=== PATIENT | male | born 1950 | race Caucasian/White ===

== ENCOUNTER 2023-04-30 14:10 | Outpatient (AMB) | payer MEDICARE, SELFPAY ==
--- NOTE | 2023-04-30 14:40 | A.OFFVIS_ITS ---
Intake Vital Signs 04/30/23 15:07 Height 5 ft 9 in Weight 151 lb 2 oz BMI 22.3 BP 98/68 Blood Pressure Location Lt brachial Position Sitting Respiration 15 Pulse 58 Pulse Source Pulse Oximeter Pulse Oximetry (%) 98 Oxygen Delivery Method Room Air Intake Visit Reasons: E-MOLD FILLER /Left sided CVA-/confirmed Intake Note: Pt is here for new pt evaluation for left sided CVA. Pt reports left sided weakness. Pt [place] [facility] [place]. Rehab followed for 2 months. Pt is here at the suggestion of his physical therapist and PCP due to rigidity and his muscles being too polina . He has difficulty unclenching his fist. PCP thought he may benefit from Botox. Allergies No Known Allergies Allergy (Verified 04/30/23 15:02) Medication List - Last Reconciled 04/30/23 by Astrid Baltazar MD acetaminophen 500 mg PO QID PRN aspirin 81 mg PO DAILY atorvastatin 80 mg PO DAILY gabapentin 600 mg PO BEDTIME HPI HPI Comments History of Present Illness Details 72y/o male comes for neurological evalua tion . He had a CVA on Jul 08 2021. He had a fall ,right facial droop , right sided weakness and left gaze preference and found to have acute ischemia in the left motor strip, left parietal and occipital lobes with associated petechial hemorrhages in the setting left ICA thrombus. He was too late for TPA. Echo showed EF 55-65% right ICA 1-49 % Left ICA 50-69% He also had COVID pneumonia. He was in hospital for few weeks, [facility] for 3 months and moved to [place] to stay with family. He had repeat testing in [place]. Since then he is on aspirin 81mg qd and atorvostatin 80mg qd. He has loud snoring and has some fatigue . He is independent in most ADLs. He wants to be evaluated for botox . He reports pain in right UE. [facility] Medical History (Updated 04/30/23 @ 15:42 by Astrid Baltazar MD) Hypersomnia Snoring Left carotid artery stenosis Right-sided extracranial carotid artery stenosis Hyperlipidemia Right hemiparesis CVA (cerebral vascular accident) Surgical History (Updated 04/30/23 @ 15:04 by Rosalie Peoples CMA) History of surgical removal of skin lesion Family History (Updated 04/30/23 @ 15:04 by Rosalie Peoples CMA) Mother No problems noted. Social History (Updated 04/30/23 @ 15:06 by Rosalie Peoples CMA) Household Members: Spouse Housing: House Are you a primary rn medicare to a significant other at home: Yes Alcohol intake: current Patient Tobacco Use Status: Former Tobacco user Years Smoked: 50 - Quit in 2020 Use of substances other than those prescribed or required for medical reasons: No Review of Systems Const Reports weakness Neuro Reports focal weakness and Reports weakness Physical Exam Vital Signs: Last Vital Signs Pulse 58 04/30/23 15:07 Resp 15 04/30/23 15:07 BP 98/68 04/30/23 15:07 Pulse Ox 98 04/30/23 15:07 Oxygen Delivery Method Room Air 04/30/23 15:07 BMI result Body Mass Index 22.3 Const General: cooperative and comfortable Nutritional Appearance: average body habitus Orientation/consciousness: patient oriented x3 Neuro Other: right UMN facial paresis Cannot shrug right shoulder Tightness in right trapezius and levator Power right UE 0-1/5 , spasticity Right Lower 3/5 - increased tone Dysarthria Mallampatti grade 4 gait- can walk without cane , small steps , off balance General: patient oriented x3 Cranial nerves: Yes Bilaterally intact EOM present and Yes Nystagmus not present Cognition (Neuro): normal cognition Gait exam (Neuro): Spastic hemiparesis gait present Deep tendon reflexes (DTR's): Right triceps reflex intensity grade: 2+, Left triceps reflex intensity grade: 2+, Rt Biceps (C5, C6): 2+, Left biceps reflex intensity grade: 2+, Right brachioradialis reflex intensity grade: 2+, Left brachioradialis reflex intensity grade: 2+, Right patellar reflex intensity grade: 3+ and Left patellar reflex intensity grade: 2+ Coordination: [id number] test normal (normal on left, unable to do on right) Assessment & Plan Assessment & Plan (1) Right hemiparesis: Code(s): G81.91 - Hemiplegia, unspecified affecting right dominant side (2) Left carotid artery stenosis: Code(s): I65.22 - Occlusion and stenosis of left carotid artery (3) Snoring: Code(s): R06.83 - Snoring Plan Continue aspirin 81mg qd Atorvastatin 80mg qd Refer to Vascular for carotid stenosis. Botox for upper limb spasticity Home sleep test to r/o sleep apnea Orders: Orders RT home sleep study Today G47.10 - Hypersomnia, unspecified, I63.9 - Cerebral infarction, unspecified, R06.83 - Snoring Referrals Vascular Surgery Referral I65.22 - Occlusion and stenosis of left carotid artery Coding Level of Care Code New Pt Level 4 (42120) Diagnoses Right hemiparesis G81.91 Left carotid artery stenosis I65.22 Snoring R06.83
[2023-04-30 15:07] VITALS: BP 98/68; PULSE 58; RESP 15; O2SAT 98; BMI 22.3
== END 2023-04-30 15:47 | disposition home or self-care (01) ==
PROVIDERS: Visit Provider Psychiatry & Neurology Neurology
DX: G81.91 Hemiplegia, unspecified affecting right dominant side (principal); I65.22 Occlusion and stenosis of left carotid artery; R06.83 Snoring
CPT/HCPCS: 99204

== ENCOUNTER → 2023-04-30 14:10 | Outpatient (BNVA) | payer MEDICARE, SELFPAY | PROVIDERS: Visit Provider Psychiatry & Neurology Neurology ==

== ENCOUNTER 2023-05-22 09:04 | Outpatient (AMB) | payer MEDICARE, SELFPAY ==
--- NOTE | 2023-05-22 09:07 | A.OFFVIS_ITS ---
Intake Vital Signs 05/22/23 09:08 Height 5 ft 9 in Weight 153 lb 6 oz BMI 22.6 BP 138/76 Blood Pressure Location Lt brachial Position Sitting Respiration 16 Pulse 52 Pulse Source Pulse Oximeter Pulse Oximetry (%) 97 Oxygen Delivery Method Room Air Intake Visit Reasons: botox Intake Note: Pt presents to the office for Botox injections. Mechanic Assistant Required: No Allergies No Known Allergies Allergy (Verified 05/22/23 09:08) Medication List - Last Reconciled 05/22/23 by Astrid Baltazar MD acetaminophen 500 mg PO QID PRN aspirin 81 mg PO DAILY atorvastatin 80 mg PO DAILY gabapentin 600 mg PO BEDTIME onabotulinumtoxinA (Botox) 100 units to be injecte dto UE muscle for spasticity; HPI HPI Comments History of Present Illness Details 72y/o male comes for treatment of his Ri ght Ue spasticty with botox Side effects including increased weakness, pain, allergic reaction, bleeding, infection were discussed in detail and an informed consent was obtained. Botulinum toxin type A 100 units Lot no C [id number] Exp 09/2025 was diluted with 2 cc of normal saline at a concentration of 25 units in 0.5 cc. Side effects were discussed and an informed consent was obtained. Muscles injected Right Biceps- 25 units Right Brachialis 25 units Right flexor carpii ulnaris 25 units Right flexor carpii radialis 25 units Total used 100 units [facility] Medical History (Updated 05/22/23 @ 09:33 by Astrid Baltazar MD) Spasticity due to old stroke Hypersomnia Snoring Left carotid artery stenosis Right-sided extracranial carotid artery stenosis Hyperlipidemia Right hemiparesis CVA (cerebral vascular accident) Surgical History History of surgical removal of skin lesion Family History Mother No problems noted. Social History Household Members: Spouse Housing: House Are you a primary healthcare network consultant to a significant other at home: Yes Alcohol intake: current Patient Tobacco Use Status: Former Tobacco user Years Smoked: 50 - Quit in 2020 Physical Exam Vital Signs: Last Vital Signs Pulse 52 05/22/23 09:08 Resp 16 05/22/23 09:08 BP 138/76 11/09/23 09:08 Pulse Ox 97 05/22/23 09:08 Oxygen Delivery Method Room Air 05/22/23 09:08 BMI result Body Mass Index 22.6 Const General: cooperative and comfortable Nutritional Appearance: average body habitus Orientation/consciousness: patient oriented x3 Neuro Other: right UMN facial paresis Cannot shrug right shoulder Tightness in right trapezius and levator Power right UE 0-1/5 , spasticity Right Lower 3/5 - increased tone Dysarthria Mallampatti grade 4 gait- can walk without cane , small steps , off balance General: patient oriented x3 Cranial nerves: Yes Bilaterally intact EOM present and Yes Nystagmus not present Coordination: hhtfen-fc-kxoc test normal (normal on left, unable to do on right) Office Procedures Botulinum toxin Injection 67217 - Extr 1-4 Procedure code (CPT) selection complete Office Meds onabotulinumtoxinA 100 unit solution for injection Performing Provider: Astrid Baltazar MD Performing Location: [facility] [place] [facility] Administered by: Astrid Baltazar MD on 05/22/23 09:35 Dose Route Admin Location Dispensed Lot Number Expiration Date [facility] Care Services Manager 100 unit IM 100 units [id number] 09/11/25 3618-0833-63 ALLERGAN/BOTOX Comments: see hpi Assessment & Plan Assessment & Plan (1) Spasticity due to old stroke: Code(s): I69.398 - Other sequelae of cerebral infarction; R25.2 - Cramp and spasm Plan Patient tolerated the procedure well He will call with any side effects. Orders: Orders AMB Botulinum toxin Injection Today I69.398 - Other sequelae of cerebral infarction, R25.2 - Cramp and spasm Coding Level of Care Code Est Pt Level 1 (99735) Diagnoses Spasticity due to old stroke I69.398; R25.2 CPT Codes Botox Injection - Botox 5: 50734 - Extr 1-4 ([id number])
[2023-05-22 09:08] VITALS: BP 138/76; PULSE 52; RESP 16; O2SAT 97; BMI 22.6
== END 2023-05-22 09:49 | disposition home or self-care (01) ==
PROVIDERS: PCP Hospitalist; Visit Provider Psychiatry & Neurology Neurology
DX: I69.331 Monoplegia of upper limb following cerebral infarction affecting right dominant side (principal); M62.838 Other muscle spasm
CPT/HCPCS: 64642

== ENCOUNTER → 2023-05-22 09:04 | Outpatient (BNVA) | payer MEDICARE, SELFPAY | PROVIDERS: PCP Hospitalist; Visit Provider Psychiatry & Neurology Neurology | DX: I69.398 Other sequelae of cerebral infarction (principal); R25.2 Cramp and spasm | CPT/HCPCS: 64642; 99211; J0585 ==

== ENCOUNTER → 2023-06-10 13:49 | Outpatient (REF) | payer MEDICARE, SELFPAY | LOC: HO.SL 13:49 | PROVIDERS: PCP Hospitalist; Visit Provider Psychiatry & Neurology Neurology | DX: G47.33 Obstructive sleep apnea (adult) (pediatric) (principal); G47.10 Hypersomnia, unspecified; R06.83 Snoring | CPT/HCPCS: 95806 ==

== ENCOUNTER → 2023-06-10 14:11 | Outpatient (BNV) | payer MEDICARE, SELFPAY | PROVIDERS: PCP Hospitalist; Visit Provider Psychiatry & Neurology Neurology | DX: G47.33 Obstructive sleep apnea (adult) (pediatric) (principal) | CPT/HCPCS: 95806 ==

== ENCOUNTER 2023-06-24 13:41 | Outpatient (AMB) | payer MEDICARE, SELFPAY ==
--- NOTE | 2023-06-24 13:48 | MHC.OFFVIS ---
Intake Intake Visit Reasons: carotid stenosis Intake Note: Rhuem referral for carotid stenosis, had stroke 07/08/2021, went to [facility] and was there about a mpnth, then went to [facility] for 6 weeks. Then in September 2021 had follow up testing in [place], was staying with brother, the doctor in [place] did testing that showed much lower percentage stenosis. So pt is very confused about current carotid issue. Accompanied by: Spouse Allergies No Known Allergies Allergy (Verified 06/24/23 14:01) HPI carotid stenosis HPI Details Very complex 72-year-old gentleman presents for evaluation regarding carotid disease. It is actually a confusing story that dates back to 07/08/2021. At that time he had COVID and subsequently passed out in the bathroom. He was subsequently admitted to [facility] and worked up. At that time CTA of the neck demonstrated 75% carotid stenosis and he had a stroke. He has a weakened right lower extremity in a nonfunctioning right upper extremity. Her he then went down to [place] and had a significant workup down there. According to the patient and unfortunately I do not have written documentation the workup was essentially negative down there. Most recently was seen by our neurology team and was referred to us for evaluation and workup. He has had no other interval changes. He is being maintained on aspirin and high-dose statin. He now presents for vascular evaluation. [facility] Medical History Spasticity due to old stroke Hypersomnia Snoring Left carotid artery stenosis Right-sided extracranial carotid artery stenosis Hyperlipidemia Right hemiparesis CVA (cerebral vascular accident) Surgical History History of surgical removal of skin lesion Family History Mother No problems noted. Social History Household Members: Spouse Housing: House Are you a primary care management associate to a significant other at home: Yes Alcohol intake: current Patient Tobacco Use Status: Former Tobacco user Years Smoked: 50 - Quit in 2020 Review of Systems Const All systems reviewed & are unremarkable except as noted in HPI and below Reports no additional complaints ENT Reports Normal hearing present Card Denies chest pain, Denies chest pain at rest, Denies chest pain with activity and Denies pedal edema Resp Denies cough GI Denies abdominal pain Musc Denies abnormal gait, Denies muscle cramps and Denies radiating pain into limb Skin/Breast Denies skin ulcer and Denies wounds Neuro Reports Normal hearing present and Denies abnormal gait Psych Reports no additional complaints Physical Exam Const General: cooperative, healthy appearing and comfortable Orientation/consciousness: oriented to person, oriented to place and oriented to time HEENT Head: Yes normal to inspection Neck Neck: Yes normal visual inspection Carotids: no bruits Chest Chest palpation & inspection: normal inspection of the chest Resp Effort & Inspection: normal respiratory effort and able to speak in complete sentences Auscultation: clear to auscultation bilaterally, no crackles, no rales, no rhonchi and no wheezes Cardio Rate: regular rate Rhythm: regular rhythm Heart sounds: S1 normal heart sound present and S2 normal heart sound present Bruits: no carotid bruits Peripheral pulses: Peripheral pulses 2+ throughout GI Inspection: Yes normal to inspection Skin Wounds: no wounds Hair: normal Neuro Other: Nonfunctioning right upper extremity, right lower extremity 3/5 strength General: oriented to person, oriented to place and oriented to time Cranial nerves: Yes CN's II-XII intact bilaterally and Yes Normal hearing present Cognition (Neuro): normal cognition Motor exam (neuro): 5/5 motor strength present throughout Extrem Other: venous exam: No significant superficial varicosities or spider telangiectasias, minimal edema General: No clubbing, No cyanosis and No edema Psych Appearance: grossly normal Mental Status: mental status grossly normal Speech and movement: Normal speech and movement present Results Reviewed Results Reviewed: Written report from CT scan at [facility] performed 07/24/2021 demonstrates left-sided stenosis of 75% Assessment & Plan Assessment & Plan (1) Left carotid artery stenosis: Code(s): I65.22 - Occlusion and stenosis of left carotid artery Plan: In short patient has high-grade carotid stenosis. It is unclear what the true degree of stenosis and why his workup at [place] was essentially negative. I have taken the liberty of ordering a CT angiogram to better elucidate the degree of stenosis. The entire pathophysiology of disease and possible further care including surgery was discussed with the patient and the patient's at bedside. We will try to expedite the CT scan. They have requested that the CT scan be performed in [place] and we will try to coordinate that for them. Thank you for allowing us to assist in his care. If there are any questions or concerns please do not hesitate to contact us. Orders: Orders Blood Urea Nitrogen Today I65.22 - Occlusion and stenosis of left carotid artery Creatinine Today I65.22 - Occlusion and stenosis of left carotid artery Coding Level of Care Code New Pt Level 4 (39464) Diagnoses Left carotid artery stenosis I65.22
== END 2023-06-24 14:18 | disposition home or self-care (01) ==
PROVIDERS: PCP Hospitalist; Visit Provider Surgery Vascular Surgery
DX: I65.22 Occlusion and stenosis of left carotid artery (principal)
CPT/HCPCS: 99204

== ENCOUNTER → 2023-06-24 13:41 | Outpatient (BNVA) | payer MEDICARE, SELFPAY | PROVIDERS: PCP Hospitalist; Visit Provider Surgery Vascular Surgery | DX: I65.22 Occlusion and stenosis of left carotid artery (principal) | CPT/HCPCS: 99202 ==

== ENCOUNTER 2023-07-17 13:30 | Outpatient (AMB) | payer MEDICARE, SELFPAY ==
--- NOTE | 2023-07-17 13:35 | MHC.OFFVIS ---
Intake Vital Signs 07/17/23 13:37 07/17/23 13:45 Height 5 ft 9 in Weight 155 lb BMI 22.9 BP 128/68 128/72 Blood Pressure Location Lt brachial Rt brachial Position Sitting Sitting Pulse 50 Pulse Source Pulse Oximeter Pulse Oximetry (%) 98 Oxygen Delivery Method Room Air Intake Visit Reasons: CTA neck at [facility] Intake Note: Pt presents to the office today for a CTA neck. Pt states he is feeling okay. Pt states he is always tired but has no other symptoms at this time. Allergies No Known Allergies Allergy (Verified 07/17/23 13:40) HPI CTA neck at rayus HPI Details Very pleasant 72-year-old gentleman presents for follow-up regarding carotid stenosis. Complex story that began after a syncopal episode after COVID. Was worked up at [facility]. At that time CTA demonstrated 75% stenosis and he had a stroke. Has weakening of the right upper and lower extremity. He underwent a workup in [place] and apparently the workup down there was negative. They said no intervention was indicated. It was unclear what the true degree of stenosis was. We have obtained a CT angiogram. He now presents for follow-up. He has had no other interval events. [facility] Medical History Spasticity due to old stroke Hypersomnia Snoring Left carotid artery stenosis Right-sided extracranial carotid artery stenosis Hyperlipidemia Right hemiparesis CVA (cerebral vascular accident) Surgical History History of surgical removal of skin lesion Family History Mother No problems noted. Social History (Updated 07/17/23 @ 13:42 by Marli Del Toro MA) Household Members: Spouse Housing: House Are you a primary auto care center manager to a significant other at home: Yes Alcohol intake: current Alcohol intake frequency: a few times a week Alcohol type: beer and wine Patient Tobacco Use Status: Former Tobacco user Years Smoked: 50 - Quit in 2020 Physical Exam Vital Signs: Last Vital Signs Pulse 50 07/17/23 13:37 BP 128/72 07/17/23 13:45 Pulse Ox 98 07/17/23 13:37 Oxygen Delivery Method Room Air 07/17/23 13:37 BMI result Body Mass Index 22.9 Results Reviewed Results Reviewed: CT angiogram performed at [facility] [place] dated 07/11/2023 demonstrates left-sided stenosis of only 40% Assessment & Plan Assessment & Plan (1) Left carotid artery stenosis: Code(s): I65.22 - Occlusion and stenosis of left carotid artery Plan: In short patient has stable carotid disease. I did have an opportunity to closely review the imaging and it does appear that it is 40%. This would be in agreement with the findings in [place]. It appears that the [facility] study may be a misread. We have reviewed signs and symptoms of a stroke. We also discussed risk factor modification inclusive a healthy diet low in cholesterol. The patient will follow up with us with surveillance ultrasound of the carotids 6 months. Should there be any changes or signs or symptoms of a stroke we will be happy to see them back sooner. Thank you for allowing us to participate in this patient's care. If there are any questions or concerns please do not hesitate to contact us. Orders: Orders US carotid duplex BI 6 Months I65.22 - Occlusion and stenosis of left carotid artery Coding Level of Care Code Est Pt Level 4 (60370) Diagnoses Left carotid artery stenosis I65.22
[2023-07-17 13:37] VITALS: BP 128/68; PULSE 50; O2SAT 98; BMI 22.9
[2023-07-17 13:45] VITALS: BP 128/72
== END 2023-07-17 14:08 | disposition home or self-care (01) ==
PROVIDERS: PCP Hospitalist; Visit Provider Surgery Vascular Surgery
DX: I65.22 Occlusion and stenosis of left carotid artery (principal)
CPT/HCPCS: 99213

== ENCOUNTER → 2023-07-17 13:30 | Outpatient (BNVA) | payer MEDICARE, SELFPAY | PROVIDERS: PCP Hospitalist; Visit Provider Surgery Vascular Surgery | DX: I65.22 Occlusion and stenosis of left carotid artery (principal) | CPT/HCPCS: 99212 ==

== ENCOUNTER 2023-09-15 12:53 | Outpatient (AMB) | payer MEDICARE, SELFPAY ==
--- NOTE | 2023-09-15 13:03 | A.OFFVIS_ITS ---
Intake Vital Signs 09/15/23 13:04 Height 5 ft 9 in Weight 155 lb BMI 22.9 BP 128/76 Blood Pressure Location Lt brachial Position Sitting Respiration 17 Pulse 52 Pulse Source Pulse Oximeter Pulse Oximetry (%) 97 Oxygen Delivery Method Room Air Intake Visit Reasons: Botox (B&B) lvm Intake Note: Pt presents to the office for Botox injections. Sample Tester Grinder Required: No Allergies No Known Allergies Allergy (Verified 09/15/23 13:04) Medication List - Last Reconciled 09/15/23 by Astrid Baltazar MD acetaminophen 500 mg PO QID PRN aspirin 81 mg PO DAILY atorvastatin 80 mg PO DAILY gabapentin 600 mg PO BEDTIME onabotulinumtoxinA (Botox) 100 units to be injecte dto UE muscle for spasticity; HPI HPI Comments History of Present Illness Details 73y/o male comes for treatment of his Ri ght Ue spasticty with botox Side effects including increased weakness, pain, allergic reaction, bleeding, infection were discussed in detail and an informed consent was obtained. Botulinum toxin type A 200 units Lot no C [id number] Exp 12/2025 was diluted with 2 cc of normal saline at a concentration of 25 units in 0.5 cc. Side effects were discussed and an informed consent was obtained. Muscles injected Right Biceps- 50units Right Brachioradialis 25 units Right flexor carpii ulnaris 50 units Right flexor carpii radialis 25 units right digitorum profundus 50 units Total used 200 units [facility] Medical History Spasticity due to old stroke Hypersomnia Snoring Left carotid artery stenosis Right-sided extracranial carotid artery stenosis Hyperlipidemia Right hemiparesis CVA (cerebral vascular accident) Surgical History History of surgical removal of skin lesion Family History Mother No problems noted. Social History Household Members: Spouse Housing: House Are you a primary healthcare project manager to a significant other at home: Yes Alcohol intake: current Alcohol intake frequency: a few times a week Alcohol type: beer and wine Patient Tobacco Use Status: Former Tobacco user Years Smoked: 50 - Quit in 2020 Physical Exam Vital Signs: Last Vital Signs Pulse 52 09/15/23 13:04 Resp 17 09/15/23 13:04 BP 128/76 09/15/23 13:04 Pulse Ox 97 09/15/23 13:04 Oxygen Delivery Method Room Air 09/15/23 13:04 BMI result Body Mass Index 22.9 Const General: cooperative and comfortable Nutritional Appearance: average body habitus Orientation/consciousness: patient oriented x3 Neuro Other: right UMN facial paresis Cannot shrug right shoulder Tightness in right trapezius and levator Power right UE 0-1/5 , spasticity Right Lower 3/5 - increased tone Dysarthria Mallampatti grade 4 gait- can walk without cane , small steps , off balance General: patient oriented x3 Cranial nerves: Yes Bilaterally intact EOM present and Yes Nystagmus not present Coordination: ldevmb-fg-bcsj test normal (normal on left, unable to do on right) Office Procedures Botulinum toxin Injection 11676 - Extr 1-4 Procedure code (CPT) selection complete Office Meds onabotulinumtoxinA 200 unit solution for injection Performing Provider: Astrid Baltazar MD Performing Location: [facility] [place] [facility] Administered by: Astrid Baltazar MD on 09/15/23 13:58 Dose Route Admin Location Dispensed Lot Number Expiration Date [facility] Criminal Defense Lawyer 200 unit IM 200 units [id number] 12/12/25 8778-0772-96 ALLERGAN/BOTOX Comments: see hpi Assessment & Plan Assessment & Plan (1) Spasticity due to old stroke: Code(s): I69.398 - Other sequelae of cerebral infarction; R25.2 - Cramp and spasm Plan Patient tolerated the procedure well He will call with any side effects. will refer to for opinion Orders: Orders AMB Botulinum toxin Injection Today I69.398 - Other sequelae of cerebral infarction, R25.2 - Cramp and spasm Referrals Physiatry Referral I69.398 - Other sequelae of cerebral infarction, R25.2 - Cramp and spasm Coding Level of Care Code Est Pt Level 1 (17268) Diagnoses Spasticity due to old stroke I69.398; R25.2 CPT Codes Botox Injection - Botox 5: 18930 - Extr 1-4 ([id number])
[2023-09-15 13:04] VITALS: BP 128/76; PULSE 52; RESP 17; O2SAT 97; BMI 22.9
== END 2023-09-15 13:57 | disposition home or self-care (01) ==
PROVIDERS: PCP Hospitalist; Visit Provider Psychiatry & Neurology Neurology
DX: I69.361 Other paralytic syndrome following cerebral infarction affecting right dominant side (principal)
CPT/HCPCS: 64642

== ENCOUNTER → 2023-09-15 12:53 | Outpatient (BNVA) | payer MEDICARE, SELFPAY | PROVIDERS: PCP Hospitalist; Visit Provider Psychiatry & Neurology Neurology | DX: I69.398 Other sequelae of cerebral infarction (principal); R25.2 Cramp and spasm | CPT/HCPCS: 64642; 99211; J0585 ==

== ENCOUNTER 2023-12-31 12:45 | Outpatient (AMB) | payer MEDICARE, SELFPAY ==
--- NOTE | 2023-12-31 12:47 | A.OFFVIS_ITS ---
Vital Signs 12/31/23 12:57 Height 5 ft 9 in Weight 156 lb 2 oz BMI 23.1 BP 120/74 Blood Pressure Location Lt brachial Position Sitting Pulse 58 Pulse Source Pulse Oximeter Pulse Oximetry (%) 95 Oxygen Delivery Method Room Air Intake Visit Reasons: Botox (B&B) - LVM w/add Intake Note: Patient presents for Botox. Allergies No Known Allergies Allergy (Verified 12/31/23 12:56) HPI Comments Details: 73y/o male comes for treatment of his Right Ue spasticty with botox Side effects including increased weakness, pain, allergic reaction, bleeding, infection were discussed in detail and an informed consent was obtained. Botulinum toxin type A 200 units Lot no C [id number] Exp 01/2026 was diluted with 2 cc of normal saline at a concentration of 25 units in 0.5 cc. Side effects were discussed and an informed consent was obtained. Muscles injected Right Biceps- 50units Right Brachioradialis 25 units Right flexor carpii ulnaris 50 units Right flexor carpii radialis 25 units right digitorum profundus 50 units Total used 200 units [facility] Medical History Spasticity due to old stroke Hypersomnia Snoring Left carotid artery stenosis Right-sided extracranial carotid artery stenosis Hyperlipidemia Right hemiparesis CVA (cerebral vascular accident) Surgical History History of surgical removal of skin lesion Family History Mother No problems noted. Social History Household Members: Spouse Housing: House Are you a primary patient care representative to a significant other at home: Yes Alcohol intake: current Alcohol intake frequency: a few times a week Alcohol type: beer and wine Patient Tobacco Use Status: Former Tobacco user Years Smoked: 50 - Quit in 2020 Physical Exam Vital Signs: Last Vital Signs Pulse 58 12/31/23 12:57 BP 120/74 12/31/23 12:57 Pulse Ox 95 12/31/23 12:57 Oxygen Delivery Method Room Air 12/31/23 12:57 BMI result Body Mass Index 23.1 Const General: cooperative and comfortable Nutritional Appearance: average body habitus Orientation/consciousness: patient oriented x3 Neuro Other: right UMN facial paresis Cannot shrug right shoulder Tightness in right trapezius and levator Power right UE 0-1/5 , spasticity Right Lower 3/5 - increased tone Dysarthria Mallampatti grade 4 gait- can walk without cane , small steps , off balance General: patient oriented x3 Cranial nerves: Yes Bilaterally intact EOM present and Yes Nystagmus not present Coordination: [id number] test normal (normal on left, unable to do on right) Office Procedures Botulinum toxin Injection 38713 - Extr 1-4 Procedure code (CPT) selection complete Office Meds onabotulinumtoxinA 200 unit solution for injection Performing Provider: Astrid Baltazar MD [place] [facility] Administered by: Astrid aBltazar MD on 12/31/23 13:50 Dose Route Admin Location Dispensed Lot Number Expiration Date NDC Resident Associate 200 unit IM 200 units [id number] 01/11/26 6712-1735-26 [employer]ERGAN/BOTOX Comments: see HPI Assessment & Plan Assessment & Plan (1) Spasticity due to old stroke: Code(s): I69.398 - Other sequelae of cerebral infarction; R25.2 - Cramp and spasm Category: Medical Plan Patient tolerated the procedure well He will call with any side effects. Orders: Orders AMB Botulinum toxin Injection Today I69.398 - Other sequelae of cerebral infarction, R25.2 - Cramp and spasm Referrals Physiatry Referral I69.398 - Other sequelae of cerebral infarction, R25.2 - Cramp and spasm Medications: New onabotulinumtoxinA 200 units IM ONCE 1 ea 0RF spasticity I69.398 - Other sequelae of cerebral infarction, R25.2 - Cramp and spasm Coding Level of Care Code Est Pt Level 1 (05951) Diagnoses Spasticity due to old stroke I69.398; R25.2 CPT Codes Botox Injection - Botox 5: 42693 - Extr 1-4 ([id number])
[2023-12-31 12:57] VITALS: BP 120/74; PULSE 58; O2SAT 95; BMI 23.1
== END 2023-12-31 13:27 | disposition home or self-care (01) ==
PROVIDERS: PCP Hospitalist; Visit Provider Psychiatry & Neurology Neurology
DX: I69.351 Hemiplegia and hemiparesis following cerebral infarction affecting right dominant side (principal)
CPT/HCPCS: 64644

== ENCOUNTER → 2023-12-31 12:45 | Outpatient (BNVA) | payer MEDICARE, SELFPAY | PROVIDERS: PCP Hospitalist; Visit Provider Psychiatry & Neurology Neurology | DX: I69.398 Other sequelae of cerebral infarction (principal); R25.2 Cramp and spasm | CPT/HCPCS: 64644; 99211; J0585 ==

== ENCOUNTER 2024-01-12 12:32 | Outpatient (REF) | payer MEDICARE, SELFPAY ==
--- NOTE | ~2024-01-12 | US_ITS ---
EXAMINATION: US EXTRACRANIAL CAROTID DUPLEX, BILATERAL CLINICAL INFORMATION: Carotid stenosis COMPARISON: None available. TECHNIQUE: Real-time ultrasound and Doppler techniques (integrating B-mode 2-D vascular images, Doppler spectral analysis and color-flow Doppler imaging) were utilized to interrogate the extracranial carotid arteries, the vertebral arteries and proximal subclavian arteries bilaterally. The degree of stenosis is determined by criteria similar to NASCET. FINDINGS: Right Side: 1. There is mild atherosclerotic plaque seen in the bifurcation/proximal ICA region. 2. The common carotid artery PSV proximally is 113 cm/s and distally 77 cm/s. 3. The proximal internal carotid artery velocities are 56.1 cm/s systolic and 18.7 cm/s diastolic. 4. The proximal external carotid artery PSV is 136 cm/s. 5. The vertebral artery shows antegrade flow. 6. The subclavian artery waveforms are normal. Left Side: 1. There is mild atherosclerotic plaque seen in the bifurcation/proximal ICA region. 2. The common carotid artery PSV proximally is 130 cm/s and distally 84.5 cm/s. 3. The proximal internal carotid artery velocities are 103 cm/s systolic and 21.2 cm/s diastolic. 4. The proximal external carotid artery PSV is 121 cm/s. 5. The vertebral artery shows antegrade flow. 6. The subclavian artery waveforms are normal. US/US carotid duplex BI IMPRESSION: 1. RIGHT: Minimal, non-hemodynamically significant stenosis of the proximal right internal carotid artery corresponding to a 0-49% stenosis by velocity criteria. 2. LEFT: Minimal, non-hemodynamically significant stenosis of the proximal left internal carotid artery corresponding to a 0-49% stenosis by velocity criteria.
== END 2024-01-12 12:33 | disposition home or self-care (01) ==
LOC: HO.US 12:32
PROVIDERS: PCP Hospitalist; Visit Provider Surgery Vascular Surgery
DX: I65.22 Occlusion and stenosis of left carotid artery (principal)
CPT/HCPCS: 93880

== ENCOUNTER 2024-03-16 11:20 | Outpatient (AMB) | payer MEDICARE, SELFPAY ==
--- NOTE | 2024-03-16 11:24 | A.OFFVIS_ITS ---
Intake Visit Reasons: GRADUATE TEACHING ASSISTANT, Botox Consult Intake Note: Manjit is a 73 year old male who presents to the office today for a new patient visit referred by Dr. Baltazar for a botox consult. Pt states he had a stroke a few years ago and states he had 3 botox injections in his arm given by Dr. Baltazar which he states did help with loosening up his muscles. Allergies No Known Allergies Allergy (Verified 03/16/24 11:24) Medication List - Last Reconciled 03/16/24 by Raisa Dodd MD acetaminophen 500 mg PO QID PRN aspirin 81 mg PO DAILY atorvastatin 80 mg PO DAILY gabapentin 600 mg PO BEDTIME onabotulinumtoxinA (Botox) 100 units to be injecte dto UE muscle for spasticity; HPI Comments Details: History of stroke 2020 with right spastic hemiparesis, right upper and lower extremities. Been getting botulinum toxin injections for the last year or so, last one was 12/31/[address] Baltazar. Continues to have stiffness especially in finger flexors despite injections. He also has stiffness on right leg but was told or under impression that botulinum toxin injections would make him more unstable. He uses a cane for gait. He owns an AFO but does not use. Modified independent for most of his ADLs as including bats and toilet, but need s animal assistant for dressing that involves right arm. Mostly independent with feeding if cut up for him. Takes gabapentin for pain for right upper extremity. is present during appointment today. [facility] Medical History Spasticity due to old stroke Hypersomnia Snoring Left carotid artery stenosis Right-sided extracranial carotid artery stenosis Hyperlipidemia Right hemiparesis CVA (cerebral vascular accident) Surgical History History of surgical removal of skin lesion Family History Mother No problems noted. Social History Household Members: Spouse Housing: House Are you a primary career development counselor to a significant other at home: Yes Alcohol intake: current Alcohol intake frequency: a few times a week Alcohol type: beer and wine Patient Tobacco Use Status: Former Tobacco user Years Smoked: 50 - Quit in 2020 Physical Exam Right upper extremity strength 2/5. Celina 2 + on elbow flexors and pronators; 3 on finger flexors. There is better strength on right lower extremity but still less than full range of motion, which I suspect is from tone on hamstrings 2+ and gastrocnemius 2+. Modified independent gait with cane. No clonus. Negative Villegas's sign. Results Reviewed Results Reviewed: Reviewed notes from Neurology Dr. Baltazar. Also some notes from Dr. Quiroz. Assessment & Plan Assessment & Plan (1) Spastic hemiparesis of right dominant side: Code(s): G81.11 - Spastic hemiplegia affecting right dominant side Category: Medical (2) Late effect of stroke: Code(s): I69.30 - Unspecified sequelae of cerebral infarction Category: Medical Plan Patient would like to continue botulinum toxin injections to right upper extremities. Reviewed past procedure notes and I think we can further increase the dose to the finger flexors. Proposed dosage: Right biceps 50-100 units Right brachioradialis 50 units Right pronator teres 50 units Right FDI 50 units Right FDS 50 units Total of 250-300 units Patient?s abnormal muscle tone in the setting of previous stroke is interfering with functional ability, and is expected to result in joint contracture without adequate intervention. Standard medical treatments have failed. Surgical intervention is considered to be the last option. Therefore chemodenervation using botulinum is deemed necessary to enhance function and allow additional therapeutic modalities to be employed. We are looking to schedule week of April, pending prior authorization. Assessment and plan discussed with patient, and patient was agreeable. All questions were answered thoroughly. Total of 45 minutes spent today including chart review, results review, history taking, physical examination, discussion of assessment and plan, and coordination of care. Raisa Dodd MD, TESSA Board Certified, [place] [employer] and [employer] (ABPMR) Board Certified, [place] [employer] Electro[employer] (ABEM) Coding Level of Care Code New Pt Level 4 (12441) Diagnoses Spastic hemiparesis of right dominant side G81.11 Late effect of stroke I69.30
== END 2024-03-16 12:23 | disposition home or self-care (01) ==
PROVIDERS: PCP Hospitalist; Visit Provider Physical Medicine & Rehabilitation
DX: G81.11 Spastic hemiplegia affecting right dominant side (principal); I69.30 Unspecified sequelae of cerebral infarction
CPT/HCPCS: 99204

== ENCOUNTER → 2024-03-16 11:20 | Outpatient (BNVA) | payer MEDICARE, SELFPAY | PROVIDERS: PCP Hospitalist; Visit Provider Physical Medicine & Rehabilitation | DX: I69.351 Hemiplegia and hemiparesis following cerebral infarction affecting right dominant side (principal) | CPT/HCPCS: 99202 ==

== ENCOUNTER 2024-04-14 13:18 | Outpatient (REF) | payer MEDICARE, SELFPAY ==
--- NOTE | 2024-04-14 13:22 | EMG_ITS ---
PROCEDURE PERFORMED: Botulinum toxin chemodenervation DIAGNOSIS: spastic hemiparesis ICD10: Spastic hemiparesis of right dominant side? G81.11 Late effect of stroke? I69.30 INDICATION: spastic muscles PREVIOUS TREATMENT AND RESPONSE: Oral antispasticity medications and physical therapy without response EXAM ON DAY OF PROCEDURE: Flexed right elbow, pronated, flexed fingers, Celina 3 TOXIN USED: Botox PROCEDURE: The procedure was explained to the patient/caregiver, and informed consent was obtained. The patient sat on wheelchair. Right upper extremity was cleansed with betadine in the usual sterile manner. A 26 gauge needle electrode was used. Muscle Units per site Number of sites Units per muscle Right biceps 50 2 100 Right BR 50 1 50 Right brachialis 30 1 30 Right PT 20 1 20 Right FDP 50 1 50 Right FDS 50 1 50 ] EMG-guidance was used during the injection. A total of 300 units injected. 0 units wastage. Vial size: 100 units per vial Dilution: 100 units per 1 ml of preservative free saline The patient tolerated the procedure well without complications. CODING: CPT code: 58054 1 ext, 5 or more muscles Guidance code: 80528 EMG guidance for chemodenervation J code: Botox J0585 [facility] code: 5770-9295-94 Lot #: [id number] Expiration date: , Raisa Dodd MD, TESSA Physical Medicine and Rehabilitation [facility]
== END 2024-04-14 13:19 | disposition home or self-care (01) ==
LOC: HO.NEURO 13:18
PROVIDERS: PCP Hospitalist; Visit Provider Physical Medicine & Rehabilitation
DX: G81.11 Spastic hemiplegia affecting right dominant side (principal); I69.30 Unspecified sequelae of cerebral infarction
CPT/HCPCS: 64644; 95874; J0585

== ENCOUNTER → 2024-04-14 13:22 | Outpatient (BNV) | payer MEDICARE, SELFPAY | PROVIDERS: PCP Hospitalist; Visit Provider Physical Medicine & Rehabilitation | DX: G81.11 Spastic hemiplegia affecting right dominant side (principal) | CPT/HCPCS: 64644; 95874 ==

== ENCOUNTER 2024-05-20 11:58 | Outpatient (AMB) | payer MEDICARE, SELFPAY ==
[2024-05-20 11:59] VITALS: BMI 23.0
--- NOTE | 2024-05-20 11:59 | A.OFFVIS_ITS ---
Vital Signs 05/20/24 11:59 Height 5 ft 9 in Weight 156 lb BMI 23.0 Intake Visit Reasons: TH: Botox follow up - inj date: 04/14/24 Intake Note: Manjit is a 73 year old male who presents via telephone for a telehealth visit for a follow up visit s/p Botox injection on 04/14/2024. Patient reports no concerns or questions. Allergies No Known Allergies Allergy (Verified 05/20/24 12:00) HPI Comments Details: History of stroke 2020 with right spastic hemiparesis, right upper and lower extremities. Been getting botulinum toxin injections for the last year or so, last one was 12/31/[address] Baltazar. Continues to have stiffness especially in finger flexors despite injections. He also has stiffness on right leg but was told or under impression that botulinum toxin injections would make him more unstable. He uses a cane for gait. He owns an AFO but does not use. Modified independent for most of his ADLs as including bats and toilet, but needs hygiene assistant for dressing that involves right arm. Mostly independent with feeding if cut up for him. Takes gabapentin for pain for right upper extremity. Botulinum toxin injection done by nd 04/14/24, total of 300 units, see below. Muscle Units per site Number of sites Units per muscle Right biceps 50 2 100 Right BR 50 1 50 Right brachialis 30 1 30 Right PT 20 1 20 Right FDP 50 1 50 Right FDS 50 1 50 Spoke to patient today, Manjit, who says there was some improvement . There was some loosening on the fingers but very little loosening on the elbow. Denies complications. [facility] Medical History Spasticity due to old stroke Hypersomnia Snoring Left carotid artery stenosis Right-sided extracranial carotid artery stenosis Hyperlipidemia Right hemiparesis CVA (cerebral vascular accident) Surgical History History of surgical removal of skin lesion Family History Mother No problems noted. Social History Household Members: Spouse Housing: House Are you a primary career development facilitator to a significant other at home: Yes Alcohol intake: current Alcohol intake frequency: a few times a week Alcohol type: beer and wine Patient Tobacco Use Status: Former Tobacco user Years Smoked: 50 - Quit in 2020 Physical Exam Vital Signs: BMI result Body Mass Index 23.0 Assessment & Plan Assessment & Plan (1) Spastic hemiparesis of right dominant side: Code(s): G81.11 - Spastic hemiplegia affecting right dominant side Category: Medical (2) Late effect of stroke: Code(s): I69.30 - Unspecified sequelae of cerebral infarction Category: Medical Plan Improvement reported by patient but not yet perfect . Patient would like to continue botulinum toxin injections to right upper extremity. We will plan on increasing dose to 400 units. Next injection will be on 07/21/24, 2pm. Patient?s abnormal muscle tone in the setting of previous stroke is interfering with functional ability, and is expected to result in joint contracture without adequate intervention. Standard medical treatments have failed. Surgical intervention is considered to be the last option. Therefore chemodenervation using botulinum is deemed necessary to enhance function and allow additional therapeutic modalities to be employed. Assessment and plan discussed with patient, and patient was agreeable. All questions were answered thoroughly. Telephone encounter, 15 minutes. Raisa Dodd MD, TESSA Board Certified, [place] [employer] and [employer] (ABPMR) Board Certified, [place] [employer] (ABEM) Coding Level of Care Code Tele Est Pt Level 3 (32586) Diagnoses Spastic hemiparesis of right dominant side G81.11 Late effect of stroke I69.30
== END 2024-05-20 12:16 | disposition home or self-care (01) ==
LOC: HO.HOS 11:58
PROVIDERS: PCP Hospitalist; Visit Provider Physical Medicine & Rehabilitation
DX: G81.11 Spastic hemiplegia affecting right dominant side (principal); I69.30 Unspecified sequelae of cerebral infarction
CPT/HCPCS: 99442

== ENCOUNTER → 2024-05-20 11:58 | Outpatient (BNVA) | payer MEDICARE, SELFPAY | PROVIDERS: PCP Hospitalist; Visit Provider Physical Medicine & Rehabilitation ==